=== PATIENT | female | born 1995 | race Caucasian/White ===

== ENCOUNTER 2024-05-19 14:07 | Emergency (ER) | payer OTHER, SELFPAY ==
[~2024-05-19] VITALS: Ht 165.1 cm; Wt 89.5 kg
[2024-05-19] MEDS ORDERED: BUPR15TA PO (14:24)
[2024-05-19] MEDS ORDERED: CYMB60CA4 PO (14:24)
[2024-05-19] MEDS ORDERED: ETON68IM SC (14:24)
[2024-05-19] MEDS ORDERED: PRAZ1CAP PO (14:24)
[2024-05-19 16:31] LABS: BASO # 0.1 10^3/uL (0.0-0.2); EOS # 0.3 10^3/uL (0.0-0.5); EOS % 3.3 % (0.0-3.0); HEMATOCRIT 40.6 % (36.0-47.0); HEMOGLOBIN 13.8 g/dl (12.0-15.5); LYMPH # 2.2 10^3/uL (1.5-5.0); LYMPH % 22.9 % (24.0-44.0); MEAN CORPUSCULAR HEMOGLOBIN 30.2 pg (27.0-33.0); MEAN CORPUSCULAR VOLUME 88.8 fl (80.0-96.0); MONO % 10.7 % (2.0-8.0); NEUTROPHILS % 61.9 % (36.0-66.0); PLATELET COUNT, AUTOMATED 240 10^3/uL (150-450); RED BLOOD COUNT 4.57 10^6/uL (4.00-5.40); WHITE BLOOD COUNT 9.8 10^3/uL (4.0-10.0)
[2024-05-19 16:36] LABS: BLOOD UREA NITROGEN 16 MG/DL (9-23); CALCIUM LEVEL 9.6 MG/DL (8.5-10.1); CARBON DIOXIDE LEVEL 27 MMOL/L (20-31); CHLORIDE LEVEL 110 MMOL/L (98-107); CREATININE FOR GFR 0.76 MG/DL (0.55-1.30); GLOMERULAR FILTRATION RATE > 60.0 (>60); GLUCOSE, FASTING 86 MG/DL (60-100); SODIUM LEVEL 142 MMOL/L (136-145)
[2024-05-19 17:34] LABS: ALBUMIN 3.8 G/DL (3.2-5.2); ALKALINE PHOSPHATASE 76 U/L (46-116); ALT/SGPT 19 U/L (7.0-40); AST/SGOT 10 U/L (<34); BILIRUBIN,DIRECT 0.1 MG/DL (<0.4); BILIRUBIN,TOTAL 0.3 MG/DL (0.3-1.2); TOTAL PROTEIN 6.4 G/DL (5.7-8.2)
[2024-05-19 18:04] LABS: Trichomonas vaginalis (AMP) NOT DETECTED (NEGATIVE)
[2024-05-19 18:27] LABS: GC DNA AMPLIFICATION NEGATIVE (NEGATIVE)
[2024-05-19] MEDS ORDERED: cefTRIAXone SOD 1 GM in D5W MINI-BAG PLUS 50 ML IM ONE (18:35)
[2024-05-19] MEDS ORDERED: LIDOCAINE 1% SDV 5ML VIAL DILUENT ONE (18:35)
[2024-05-19] MEDS ORDERED: PHEN-372 PO (18:44)
[2024-05-19] MEDS ORDERED: SULF1TAB23 PO (18:44)
[2024-05-19] MEDS ORDERED: DIFL200T PO (18:44)
[2024-05-19] MEDS: FLUCONAZOLE 50MG TABLET PO ONE (18:52)
[2024-05-19] MEDS: cefTRIAXone SOD 1 GM in D5W MINI-BAG PLUS 50 ML IV ONE (18:52)
[2024-05-19] MEDS: PHENAZOPYRIDINE 100 MG TAB PO ONE (18:53)
[2024-05-19 18:57] VITALS: BP 111/71; TEMP 98.3; O2SAT 99
== END 2024-05-19 19:44 | disposition home or self-care (01) ==
LOC: M ED 14:07
DX: N39.0 Urinary tract infection, site not specified (principal); B37.31 Acute candidiasis of vulva and vagina; K21.9 Gastro-esophageal reflux disease without esophagitis; E73.9 Lactose intolerance, unspecified; J30.89 Other allergic rhinitis; Z87.59 Personal history of other complications of pregnancy, childbirth and the puerperium; Z87.448 Personal history of other diseases of urinary system; F17.200 Nicotine dependence, unspecified, uncomplicated
CPT/HCPCS: 74176; 80048; 80076; 81001; 84702; 85025; 87088; 87186; 87210; 87661; 87810; 87850; 96365; 99284; J0696